=== PATIENT | male | born 1940 | race Caucasian/White ===

== ENCOUNTER 2017-02-10 07:49 | Outpatient (CLI) | payer MEDICARE ==
[~2017-02-10 07:49] MED LIST: ALFU10TA2 PO; ASPI-110 PO; ATOR20TA15 PO; DOCU100C PO; FURO1TAB62 PO; GLIM1TAB PO; HYDR-3533 PO; LOSA100T PO; METO50TA PO; MIRA33504 PO; MULT1TAB84 PO; PANT40TA3 PO; PLAV75TA29 PO; POTA-243 PO
[2017-02-10 08:12] VITALS: BP 158/86; PULSE 73; RESP 20; TEMP 97.6; O2SAT 99
[2017-02-10] MEDS ORDERED: SODIUM CHLORID 0.9% 500 ML INJ 500 ML IV ONE (09:15)
[2017-02-10 11:37] VITALS: BP 157/76; PULSE 74; RESP 20; TEMP 97.5; O2SAT 98
[2017-02-10] MEDS ORDERED: IOHEXOL 350 MG/ML 10 ML VIAL (for RAD DIAG) IV ONE (12:11)
--- NOTE | 2017-02-10 13:43 | RADRPT ---
EXAM DATE/TIME: 02/10/2017 11:18 [place] COMPARISON: CTA CAROTID ARTERIES W 3D RECON, July 20, 2016, 21:20. INDICATIONS : Evaluate for stenosis. IV CONTRAST: 74 cc Omnipaque 350 (iohexol) IV RADIATION DOSE: 28.46 CTDIvol (mGy) MEDICAL HISTORY : Cerebrovascular disease. Cardiovascular disease Hypertension.Diabetes,renal dis SURGICAL HISTORY : CABG [place] ENCOUNTER: Initial ACUITY: 1 day PAIN SCALE: 0/10 LOCATION: [facility] NECK Elevated flow velocities and ICA/CCA ratios have been found to correlate with increased degrees of vessel stenosis, calculated as percentage of diameter relative to a normal segment of distal ICA/CCA. TECHNIQUE: Volumetric scanning was performed using a multirow detector CT scanner. The data was post processed with a variety of visualization algorithms including full-volume maximum intensity projection, multip lanar sliding thin-slab reformation, curved-planar reformation, and surface-rendering techniques. Us ing automated exposure control and adjustment of the mA and/or kV according to patient size, radiatio n dose was kept as low as reasonably achievable to obtain optimal diagnostic quality images. FINDINGS: AORTIC ARCH: There is a three-vessel origin of the great vessels from the aorta. No evidence of ostial narrowing. RIGHT CAROTID: The common carotid is widely patent. The examination demonstrates an area of intimal hyperplasia at t he bifurcation and extending up into the origin of the right internal carotid. This results in a mode rate grade stenosis at the origin the right internal carotid. This is measured at approximately 40% b y NASCET criteria. The more cephalad portion of the internal carotid is widely patent. LEFT CAROTID: The common carotid is widely patent. There is mild atherosclerotic plaquing at the bifurcation. No he modynamically significant stenosis is identified. The more cephalad portion of internal carotid is wi anil patent. VERTEBRALS: The left vertebral is somewhat small in size. The right vertebral is the dominant blood supply to the basilar. The basilar is widely patent and CONCLUSION: 1. 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 This results in a stenosis measured at approximately 40% by NASCET criteria. Mild atherosclerotic plaquing at the bifurcation on the left. No hemodynamically significant stenosis . Sharad Diaz MD on February 10, 2017 at 13:37 Board Certified Radiologist. This report was verified electronically.
== END 2017-02-10 12:00 | disposition home or self-care (01) ==
LOC: HRAD 07:49 → HRIP 08:03 → HRAD 12:00
PROVIDERS: ATTEND Surgery Vascular Surgery
DX: I65.29 Occlusion and stenosis of unspecified carotid artery (principal)
CPT/HCPCS: 70498; 82565; 84520; 96360; 96361; J7040; Q9967